=== PATIENT | male | born 1995 | race Hispanic/Latino ===

== ENCOUNTER 2017-06-03 22:06 | Emergency (ER) | payer MEDICAID, OTHER ==
[2017-06-03] MEDS ORDERED: SODIUM CHLORIDE 0.9% 1000ML 1,000 ML IV ONE (22:24)
[2017-06-03] MEDS ORDERED: ONDANSETRON HCL MDV 20ML 2 MG/ML VIAL ONE (22:24)
[2017-06-03] MEDS ORDERED: KETOROLAC TROMETHAMINE 30MG/ML ONE (22:25)
[2017-06-03 22:33] LABS: HEMATOCRIT 44.7 % (42-54); LYMPHOCYTES % (AUTO) 5.1 % (21.0-51.0); MEAN CORPUSCULAR HEMOGLOBIN 31.1 pg (27.0-33.0); MEAN CORPUSCULAR HGB CONC 34.7 g/dL (32.0-36.0); MEAN CORPUSCULAR VOLUME 89.5 fL (80-100); MONOCYTES % (AUTO) 5.7 % (3.0-13.0); NEUTROPHILS % (AUTO) 88.2 % (40.0-77.0); PLATELET COUNT (AUTO) 243 K/uL (130-400); RED BLOOD CELL COUNT(AUTO) 4.99 MIL/uL (4.50-6.20); RED CELL DISTRIBUTION WIDTH 13.1 % (11.0-15.5); WHITE BLOOD COUNT (AUTO) 12.3 K/uL (4.8-10.8)
[2017-06-03 22:44] LABS: INR 1.01 (0.85-1.15); PARTIAL THROMBOPLASTIN TIME 26.6 SEC (26.3-35.5); PROTHROMBIN TIME 10.6 SEC (9.6-11.6)
[2017-06-03 22:49] LABS: ALBUMIN 4.8 g/dL (3.5-5.0); BILIRUBIN,DIRECT 0.2 mg/dL (0.0-0.3); BILIRUBIN,TOTAL 0.8 mg/dL (0.2-1.0); TOTAL PROTEIN, SERUM 8.4 g/dL (6.0-8.3)
[2017-06-03 23:12] LABS: BILIRUBIN,URINE Negative (NEGATIVE); COLOR,URINE Dark Yellow (YELLOW); GLUCOSE, URINE (UA) Negative (NEGATIVE); KETONES,URINE 40 mg/dL (NEGATIVE); LEUKOCYTE ESTERASE ,URINE Moderate (NEGATIVE); NITRATE,URINE Negative (NEGATIVE); OCCULT BLOOD,URINE Negative (NEGATIVE); PROTEIN,URINE Trace (NEGATIVE)
[2017-06-03 23:20] LABS: AMPHET/METH SCREEN,URINE NEGATIVE (NEGATIVE); BARBITURATE SCREEN, URINE NEGATIVE (NEGATIVE); BENZODIAZEPINES SCREEN,URINE NEGATIVE (NEGATIVE); CANNABINOID SCREEN,URINE NEGATIVE (NEGATIVE); COCAINE SCREEN,URINE NEGATIVE (NEGATIVE); OPIATE SCREEN,URINE NEGATIVE (NEGATIVE); PHENCYCLIDINE SCREEN,URINE NEGATIVE (NEGATIVE)
[2017-06-03 23:24] LABS: APPEARANCE,URINE SLIGHTLY CLOUDY (CLEAR); BACTERIA,URINE Few /HPF (None Seen); MUCUS,URINE Many LPF (None Seen); RBC,URINE 0-1 /HPF (0-1)
[2017-06-04] MEDS ORDERED: DICYCLOMINE HCL 20 MG TAB ONE
[2017-06-04] MEDS ORDERED: ONDANSETRON HCL MDV 20ML 2 MG/ML VIAL ONE (00:18)
[2017-06-04] MEDS ORDERED: SODIUM CHLORIDE 0.9% 1000ML 1,000 ML IV ONE (01:21)
[2017-06-04] MEDS ORDERED: PROMETHAZINE HCL 25 MG/ML 1ML AMPULE IM ONE (01:22)
== END 2017-06-04 02:10 | disposition home or self-care (01) ==
LOC: EDH 22:06
DX: K52.9 Noninfective gastroenteritis and colitis, unspecified (principal)
CPT/HCPCS: 36415; 74176; 80076; 80305; 81001; 82550; 83690; 85025; 85610; 85730; 96361; 96372; 96374; 96375; 96376; 99285; J1885; J2550; J7030 ×2

== ENCOUNTER 2021-03-21 02:37 | Emergency (ER) | payer OTHER ==
[~2021-03-21] VITALS: Ht 188 cm; Wt 81.6 kg
[2021-03-21 03:16] LABS: BASOPHILS % (AUTO) 0.2 % (0.0-5.0); EOSINOPHILS % (AUTO) 0.4 % (0.0-8.0); HEMATOCRIT 47.6 % (42-54); LYMPHOCYTES % (AUTO) 3.4 % (21.0-51.0); MEAN CORPUSCULAR HEMOGLOBIN 30.7 pg (27.0-33.0); MEAN CORPUSCULAR VOLUME 90.2 fL (79-99); MONOCYTES % (AUTO) 7.8 % (3.0-13.0); NEUTROPHILS % (AUTO) 87.8 % (40.0-77.0); PLATELET COUNT (AUTO) 293 K/uL (130-400); RED BLOOD CELL COUNT(AUTO) 5.28 MIL/uL (4.50-6.20); RED CELL DISTRIBUTION WIDTH 12.4 % (11.0-15.5); WHITE BLOOD COUNT (AUTO) 22.7 K/uL (4.8-10.8)
[2021-03-21 03:17] LABS: CREATININE 1.1 mg/dL (0.5-1.5); POTASSIUM 3.8 mmol/L (3.5-5.1)
[2021-03-21 03:27] LABS: ALBUMIN 5.3 g/dL (3.5-5.0); BILIRUBIN,TOTAL 0.8 mg/dL (0.2-1.0); TOTAL PROTEIN, SERUM 8.4 g/dL (6.0-8.3)
[2021-03-21 03:41] LABS: BILIRUBIN,URINE Negative (NEGATIVE); COLOR,URINE Yellow (YELLOW); GLUCOSE, URINE (UA) Negative (NEGATIVE); KETONES,URINE 40 mg/dL (NEGATIVE); LEUKOCYTE ESTERASE ,URINE Negative (NEGATIVE); NITRATE,URINE Negative (NEGATIVE); OCCULT BLOOD,URINE Large (NEGATIVE); PH,URINE 5.5 (5.0-8.0); PROTEIN,URINE POS 2+ mg/dL (NEGATIVE)
[2021-03-21 03:42] LABS: APPEARANCE,URINE CLEAR (CLEAR)
[2021-03-21 03:47] LABS: AMPHET/METH SCREEN,URINE NEGATIVE (NEGATIVE); BARBITURATE SCREEN, URINE NEGATIVE (NEGATIVE); BENZODIAZEPINES SCREEN,URINE NEGATIVE (NEGATIVE); CANNABINOID SCREEN,URINE POSITIVE (NEGATIVE); COCAINE SCREEN,URINE NEGATIVE (NEGATIVE); OPIATE SCREEN,URINE NEGATIVE (NEGATIVE); PHENCYCLIDINE SCREEN,URINE NEGATIVE (NEGATIVE)
[2021-03-21 03:54] LABS: BACTERIA,URINE Few /HPF (None Seen); HYALINE CASTS, URINE 0-1 /LPF (0-1 /LPF); MUCUS,URINE Few LPF (None Seen)
[2021-03-21 03:55] LABS: FINE GRANULAR CASTS,URINE 0-2 /LPF (None Seen)
[2021-03-21] MEDS ORDERED: KETOROLAC 30MG VIAL (30MG/ML) ONE (04:09)
[2021-03-21] MEDS ORDERED: ONDANSETRON 4MG INJ ONE (04:09)
[2021-03-21] MEDS ORDERED: IOHEXOL 350 MG/ML 100ML INFUS..BTL IV ONE (04:24)
[2021-03-21] MEDS ORDERED: KETOROLAC 30MG VIAL (30MG/ML) IVP ONE (04:30)
[2021-03-21] MEDS ORDERED: ONDANSETRON 4MG INJ IVP ONE (04:30)
[2021-03-21] MEDS ORDERED: DICL35CA3 PO (07:36)
[2021-03-21] MEDS ORDERED: CYCL10TA16 PO (07:36)
[2021-03-21 08:11] VITALS: BP 128/72
== END 2021-03-21 08:13 | disposition home or self-care (01) ==
LOC: EDH 02:37
DX: S60.222A Contusion of left hand, initial encounter (principal); S00.83XA Contusion of other part of head, initial encounter; Z79.899 Other long term (current) drug therapy; Z79.1 Long term (current) use of non-steroidal anti-inflammatories (NSAID); X58.XXXA Exposure to other specified factors, initial encounter; Y93.89 Activity, other specified; Y92.89 Other specified places as the place of occurrence of the external cause; Y99.8 Other external cause status
CPT/HCPCS: 29125; 36415; 70450; 71045; 72125; 73130; 74177; 80053; 80305; 81001; 82550; 83874; 84484; 85025; 93005; 96374; 96375; 99285; J1885; J2405; Q9967